=== PATIENT | female | born 1945 | race Caucasian/White ===

== ENCOUNTER 2019-08-02 15:39 | Emergency (ER) | payer OTHER ==
[~2019-08-02] VITALS: Ht 157.5 cm; Wt 69.9 kg
[2019-08-02] MEDS ORDERED: ATACAND32 MG (15:46)
== END 2019-08-02 19:17 | disposition home or self-care (01) ==
LOC: ER 15:39
DX: R51 Headache (principal); R10.13 Epigastric pain; D32.0 Benign neoplasm of cerebral meninges

== ENCOUNTER 2019-10-20 10:19 | Outpatient (CLI) | payer OTHER ==
[~2019-10-20 10:19] MED LIST: ATACAND32 MG
== END 2019-10-20 10:26 | disposition home or self-care (01) ==
LOC: MRI 10:19
DX: D32.0 Benign neoplasm of cerebral meninges (principal); I60.8 Other nontraumatic subarachnoid hemorrhage
CPT/HCPCS: 70553; A9575; 70551

== ENCOUNTER 2021-05-22 09:10 | Outpatient (CLI) | payer OTHER | END 2021-05-22 10:01 | disposition home or self-care (01) | LOC: SONOGRAMA 09:10 | PROVIDERS: ATTEND General Practice | DX: E03.8 Other specified hypothyroidism (principal); R13.13 Dysphagia, pharyngeal phase; E07.89 Other specified disorders of thyroid ==

== ENCOUNTER 2021-06-05 08:34 | Outpatient (CLI) | payer OTHER | END 2021-06-05 08:40 | disposition home or self-care (01) | LOC: RX STUDY 08:34 | PROVIDERS: ATTEND General Practice | DX: R13.13 Dysphagia, pharyngeal phase (principal); K44.9 Diaphragmatic hernia without obstruction or gangrene ==

== ENCOUNTER → 2024-03-08 06:17 | Outpatient (CLI) | payer OTHER ==
[2024-03-08 07:53] LABS: % SATURACION 28.7 % (15-50); ALBUMIN 3.5 gm/dL (3.4-5.0); BILIRUBIN TOTAL 0.58 mg/dL (0.3-1.2); CALCIUM 8.8 mg/dL (8.5-10.1); CREATININE SERUM 0.54 mg/dL (0.55-1.02); FERRITIN 101.5 NG/ML (8-252); GFR 109.47; POTASSIUM 3.61 mEq/L (3.5-5.1); T4 FREE 1.27 NG/ML (0.76-1.46); TOTAL PROTEIN 6.5 gm/dL (6.4-8.2); TSH 1.41 uIU/mL (0.358-3.74)
[2024-03-08 07:57] LABS: HEMATOCRIT 39.5 % (36.0-45.00); HEMOGLOBIN 13.4 g/dL (12.0-15.00); MEAN CELL VOLUME 90.3 fL (80.00-100.00); MEAN CORPUSCULAR HEMOGLOBIN 30.7 pg (27.00-32.0); RED BLOOD COUNT 4.37 M/uL (4.00-6.00); RED CELL DISTRIBUTION WIDTH 13.3 % (11.5-14.5)
[2024-03-08 08:02] LABS: PLATELET COUNT 82 K/uL (150-450)
[2024-03-08 09:32] LABS: MANUAL PLATELET COUNT 190
[2024-03-08 09:34] LABS: PLATELET ESTIMATE NORMAL (NORMAL)
[2024-03-08 11:05] LABS: FOLIC ACID 15.61 ng/ml (4.78-20)
[2024-03-09 09:11] LABS: ANTI THYROID PEROXIDASE < 9 IU/mL (0-34); TRANSFERIN 240 mg/dL (192-364)
[2024-03-09 15:07] LABS: hgb a 97.5 % (96.4-98.8); hgb a2 2.5 % (1.8-3.2); hgb f 0 % (0.0-2.0); hgb s 0 % (0.0)
[2024-03-11 13:06] LABS: PARIETAL CELL ANTIBODIES 0.9 Units (0.0-20.0)
[2024-03-12 15:06] LABS: g6pd quant 247 (127-427); rbc 4.37 x10E6/uL (3.77-5.28)
== END | disposition home or self-care (01) ==
LOC: LAB 06:17
PROVIDERS: ATTEND Internal Medicine Hematology & Oncology
DX: D69.6 Thrombocytopenia, unspecified (principal); M81.0 Age-related osteoporosis without current pathological fracture; M19.91 Primary osteoarthritis, unspecified site; K29.70 Gastritis, unspecified, without bleeding; E06.3 Autoimmune thyroiditis; D50.8 Other iron deficiency anemias; R79.9 Abnormal finding of blood chemistry, unspecified; I10 Essential (primary) hypertension; R74.02 Elevation of levels of lactic acid dehydrogenase [LDH]; K76.89 Other specified diseases of liver; D55.0 Anemia due to glucose-6-phosphate dehydrogenase [G6PD] deficiency; E03.8 Other specified hypothyroidism

== ENCOUNTER → 2024-05-30 07:05 | Outpatient (CLI) | payer OTHER ==
[2024-05-30 08:09] LABS: HEMOGLOBIN 14.2 g/dL (12.0-15.00); MEAN CELL VOLUME 92.1 fL (80.00-100.00); MEAN CORPUSCULAR HEMOGLOBIN 31.9 pg (27.00-32.0); MEAN CORPUSCULAR HGB CONC 34.6 g/dl (32.0-36.0); RED BLOOD COUNT 4.45 M/uL (4.00-6.00); RED CELL DISTRIBUTION WIDTH 14.3 % (11.5-14.5)
[2024-05-30 08:12] LABS: PLATELET COUNT 83 K/uL (150-450)
[2024-05-30 08:38] LABS: ALBUMIN 3.8 gm/dL (3.4-5.0); BILIRUBIN TOTAL 0.5 mg/dL (0.3-1.2); CREATININE SERUM 0.5 mg/dL (0.55-1.02); GFR 119.64; GLOBULINA 3.2 G/DL (2.4-3.5); POTASSIUM 3.56 mEq/L (3.5-5.1)
[2024-05-30 13:39] LABS: MANUAL PLATELET COUNT 202
[2024-05-30 13:40] LABS: PLATELET ESTIMATE NORMAL (NORMAL)
[2024-05-30 14:53] LABS: FOLIC ACID > 20.00 ng/ml (4.78-20)
== END | disposition home or self-care (01) ==
LOC: LAB 07:05
PROVIDERS: ATTEND Internal Medicine Hematology & Oncology
DX: D69.6 Thrombocytopenia, unspecified (principal); M81.0 Age-related osteoporosis without current pathological fracture; M19.91 Primary osteoarthritis, unspecified site; K29.70 Gastritis, unspecified, without bleeding; D50.8 Other iron deficiency anemias; R79.9 Abnormal finding of blood chemistry, unspecified; I10 Essential (primary) hypertension; R74.02 Elevation of levels of lactic acid dehydrogenase [LDH]; K76.89 Other specified diseases of liver

== ENCOUNTER → 2024-10-09 06:56 | Outpatient (CLI) | payer OTHER ==
[2024-10-09 08:25] LABS: HEMATOCRIT 40.4 % (36.0-45.00); HEMOGLOBIN 13.8 g/dL (12.0-15.00); MEAN CELL VOLUME 93.5 fL (80.00-100.00); MEAN CORPUSCULAR HEMOGLOBIN 31.9 pg (27.00-32.0); MEAN CORPUSCULAR HGB CONC 34.1 g/dl (32.0-36.0); RED BLOOD COUNT 4.32 M/uL (4.00-6.00); RED CELL DISTRIBUTION WIDTH 13.9 % (11.5-14.5)
[2024-10-09 08:34] LABS: PLATELET COUNT 74 K/uL (150-450)
[2024-10-09 08:46] LABS: ALBUMIN 3.5 gm/dL (3.4-5.0); BILIRUBIN TOTAL 0.54 mg/dL (0.3-1.2); CALCIUM 8.9 mg/dL (8.5-10.1); CREATININE SERUM 0.54 mg/dL (0.55-1.02); GFR 109.18; GLOBULINA 2.9 G/DL (2.4-3.5); POTASSIUM 3.64 mEq/L (3.5-5.1); TOTAL PROTEIN 6.4 gm/dL (6.4-8.2)
[2024-10-09 13:09] LABS: FOLIC ACID > 20.00 ng/ml (4.78-20)
[2024-10-10 08:04] LABS: hav igm Negative (Negative); hcv Non Reactive (Non Reactive); hep b c Negative (Negative); hep b s ag Negative (Negative)
[2024-10-10 09:06] LABS: MANUAL PLATELET COUNT 166
[2024-10-10 09:09] LABS: PLATELET ESTIMATE NORMAL (NORMAL)
[2024-10-10 10:08] LABS: CA 125 15.9 U/mL (0.0-38.1); CA 15-3 10.5 U/mL (0.0-25.0); CA 19-9 6 U/mL (0-35)
[2024-10-11 10:08] LABS: a:g ratio 1.5 (0.7-1.7); alpha 1 g 0.2 g/dL (0.0-0.4); alpha 2 0.6 g/dL (0.4-1.0); beta g 0.9 g/dL (0.7-1.3); gamma g 0.9 g/dL (0.4-1.8); globulin t 2.5 g/dL (2.2-3.9); m spike Not Observed g/dL (Not Observed); prot total 6.2 g/dL (6.0-8.5)
== END | disposition home or self-care (01) ==
LOC: LAB 06:56
PROVIDERS: ATTEND Internal Medicine Hematology & Oncology
DX: D69.6 Thrombocytopenia, unspecified (principal); D51.3 Other dietary vitamin B12 deficiency anemia; M81.0 Age-related osteoporosis without current pathological fracture; M19.91 Primary osteoarthritis, unspecified site; K29.70 Gastritis, unspecified, without bleeding; D53.0 Protein deficiency anemia; D50.8 Other iron deficiency anemias; R79.9 Abnormal finding of blood chemistry, unspecified; I10 Essential (primary) hypertension; R74.02 Elevation of levels of lactic acid dehydrogenase [LDH]; K76.89 Other specified diseases of liver; D51.8 Other vitamin B12 deficiency anemias; C50.919 Malignant neoplasm of unspecified site of unspecified female breast; R97.8 Other abnormal tumor markers; C56.9 Malignant neoplasm of unspecified ovary; R97.1 Elevated cancer antigen 125 [CA 125]; R97.0 Elevated carcinoembryonic antigen [CEA]; R53.81 Other malaise; D72.819 Decreased white blood cell count, unspecified; R10.819 Abdominal tenderness, unspecified site; D61.818 Other pancytopenia

== ENCOUNTER → 2025-05-05 07:54 | Outpatient (CLI) | payer OTHER ==
[2025-05-05 09:47] LABS: BASO % 0.7 % (0.1-1.2); EOS # 0.01 (0.04-0.54); EOS % 0.4 % (0.7-7.0); LYMPH # 0.75 (1.18-3.74); LYMPH % 27.2 % (19.3-53.1); MEAN PLATELET VOLUME 13.10 fl (9.4-12.4); MONO # 0.22 (0.24-0.82); MONO % 8.0 % (4.7-12.5); NEUT # 1.75 (1.56-6.13); NEUT % 63.3 % (34.0-71.1); RED CELL DISTRIBUTION WIDTH 13.0 % (11.6-14.4)
[2025-05-05 10:32] LABS: ALT/SGPT 17.0 U/L (12-78); AST/SGOT 16.0 U/L (15-37); BILIRUBIN TOTAL 0.7 mg/dL (0.3-1.2); BUN CREA RATIO 26.0 (7.0-25.0); CREATININE SERUM 0.54 mg/dL (0.55-1.02); FE 90.0 ug/dl (50-170); GFR 109.18; GLOBULINA 3.1 G/DL (2.4-3.5); GLUCOSE FASTING 77.0 mg/dL (65-100); LDH 169.0 U/L (84-246); OSMOLALITY SERUM 288.0 MOSM/KG (275-295)
[2025-05-07 12:55] LABS: FOLIC ACID 16.11 ng/ml (4.78-20)
[2025-05-08 09:11] LABS: COMPLEMENT C3 125 mg/dL (82-167); COMPLEMENT C4 26 mg/dL (12-38)
[2025-05-08 09:59] LABS: MANUAL PLATELET COUNT 100
[2025-05-08 13:11] LABS: DNA AB DOUBLE STRABDED 110 IU/mL (0-9)
== END | disposition home or self-care (01) ==
LOC: LAB 07:54
PROVIDERS: ATTEND Internal Medicine Hematology & Oncology
DX: D69.6 Thrombocytopenia, unspecified (principal); D51.3 Other dietary vitamin B12 deficiency anemia; M81.0 Age-related osteoporosis without current pathological fracture; M19.91 Primary osteoarthritis, unspecified site; K29.70 Gastritis, unspecified, without bleeding; D53.0 Protein deficiency anemia; D50.8 Other iron deficiency anemias; R79.9 Abnormal finding of blood chemistry, unspecified; I10 Essential (primary) hypertension; R74.02 Elevation of levels of lactic acid dehydrogenase [LDH]; K76.89 Other specified diseases of liver; M32.9 Systemic lupus erythematosus, unspecified; K74.3 Primary biliary cirrhosis; M06.9 Rheumatoid arthritis, unspecified

== ENCOUNTER 2025-05-24 08:47 | Outpatient (CLI) | payer OTHER ==
[2025-05-24 10:30] LABS: BASO % 0.3 % (0.1-1.2); EOS # 0.02 (0.04-0.54); EOS % 0.5 % (0.7-7.0); LYMPH # 0.71 (1.18-3.74); LYMPH % 19.3 % (19.3-53.1); MEAN PLATELET VOLUME 12.50 fl (9.4-12.4); MONO # 0.25 (0.24-0.82); MONO % 6.8 % (4.7-12.5); NEUT # 2.68 (1.56-6.13); NEUT % 72.8 % (34.0-71.1); RED CELL DISTRIBUTION WIDTH 12.8 % (11.6-14.4)
[2025-05-24 10:35] LABS: ERYTHROCYTE SEDIMENTATION RATE 8 mm/hr (0-30)
== END 2025-05-24 08:48 | disposition home or self-care (01) ==
LOC: LAB 08:47
PROVIDERS: ATTEND Internal Medicine Hematology & Oncology
DX: M32.8 Other forms of systemic lupus erythematosus (principal); M06.88 Other specified rheumatoid arthritis, vertebrae; Z29.81 Encounter for HIV pre-exposure prophylaxis; B17.9 Acute viral hepatitis, unspecified; M35.07 Sjogren syndrome with central nervous system involvement; M32.9 Systemic lupus erythematosus, unspecified; M06.9 Rheumatoid arthritis, unspecified; K74.3 Primary biliary cirrhosis; D51.1 Vitamin B12 deficiency anemia due to selective vitamin B12 malabsorption with proteinuria; D51.0 Vitamin B12 deficiency anemia due to intrinsic factor deficiency; M34.81 Systemic sclerosis with lung involvement; E06.3 Autoimmune thyroiditis; M33.20 Polymyositis, organ involvement unspecified; M05.9 Rheumatoid arthritis with rheumatoid factor, unspecified; D68.61 Antiphospholipid syndrome; D68.62 Lupus anticoagulant syndrome; D68.312 Antiphospholipid antibody with hemorrhagic disorder